=== PATIENT | female | born 1995 | race American Indian/Alaskan Native ===

== ENCOUNTER 2018-10-24 14:10 | Emergency (ER) | payer OTHER ==
--- NOTE | 2018-10-24 14:18 | Emergency Department Report ---
Blank Doc - Documentation Documentation: This is a 23-year-old female that presents with pelvic pain and vaginal bleedi ng. Unsure if shes . This initial assessment/diagnostic orders/clinical plan/treatment(s) is/are subject to change based on patient's health status, clinical progression and re- assessment by fellow clinical providers in the ED. Further treatment and workup at subsequent clinical providers discretion. Patient/guardians urged not to elope from the ED as their condition may be serious if not clinically assessed and managed. Initial orders include: 1- Patient sent to [facility] for further evaluation and treatment 2- UA
[2018-10-24 15:20] LABS: Bilirubin,Urine NEG (Negative); Blood,Urine NEG (Negative); Color,Urine Yellow (Yellow); Mucus,Urine 3+ /HPF; Protein,Urine <15 mg/dL mg/dL (Negative)
[2018-10-24 15:22] LABS: HCG Qualitative,Urine Negative (Negative)
[2018-10-24] MEDS ORDERED: IBUPROFEN PO ONE (17:55)
--- NOTE | 2018-10-24 18:12 | Emergency Department Report ---
ED Female HPI - General Chief complaint: Abdominal Pain Stated complaint: CRAMPS/SPOTTING/ABD PAIN Time Seen by Provider: 10/24/18 14:17 Source: patient Mode of arrival: Ambulatory Limitations: No Limitations - History of Present Illness Initial comments: Patient is a 23-year-old female who presents to the emergency room with complaints of suprapubic abdominal cramping that began yesterday. She describes the cramping as "menstrual cramps." She states she began to have spotting yesterday. States she came to the emergency room just to find out if she was . She states that she got off Depo-Provera in May. She has not had a normal cycle since then. Has any past medical history or allergies to medications. - Related Data Allergies Allergy/AdvReac Type Severity Reaction Status Date / Time No Known Allergies Allergy Unverified 10/24/18 14:14 ED Review of Systems ROS: Stated complaint: CRAMPS/SPOTTING/ABD PAIN Other details as noted in HPI Comment: All other systems reviewed and negative ED Past Medical Hx - Past Medical History Previous Medical History?: No - Surgical History Past Surgical History?: No - Social History Smoking Status: Never Smoker Substance Use Type: None ED Physical Exam - General Limitations: No Limitations General appearance: alert, in no apparent distress - Head Head exam: Present: atraumatic, normocephalic - Eye Eye exam: Present: normal appearance - ENT ENT exam: Present: mucous membranes moist - Respiratory Respiratory exam: Present: normal lung sounds bilaterally. Absent: respiratory distress, wheezes, rales, rhonchi, stridor, chest wall tenderness, accessory muscle use, decreased breath sounds, prolonged expiratory - Cardiovascular Cardiovascular Exam: Present: regular rate, normal rhythm, normal heart sounds. Absent: systolic murmur, diastolic murmur, rubs, gallop - GI/Abdominal GI/Abdominal exam: Present: soft, normal bowel sounds. Absent: distended, tenderness, guarding, rebound, rigid - Back Exam Back exam: Absent: CVA tenderness (R), CVA tenderness (L) - Neurological Exam Neurological exam: Present: alert, oriented X3 - Psychiatric Psychiatric exam: Present: normal affect, normal mood - Skin Skin exam: Present: warm, dry, intact ED Course Vital Signs 10/24/18 10/24/18 14:18 18:15 Temperature 98.3 F Pulse Rate 102 H 90 Respiratory 18 16 Rate Blood Pressure 153/89 Blood Pressure 146/84 [Left] O2 Sat by Pulse 100 100 Oximetry ED Medical Decision Making - Lab Data Lab Results 10/24/18 Range/Units 14:57 Urine Color Yellow (Yellow) Urine Turbidity Clear (Clear) Urine pH 5.0 (5.0-7.0) Ur Specific Milnor 1.031 H (1.003-1.030) Urine Protein <15 mg/dl (Negative) mg/dL Urine Glucose (UA) Neg (Negative) mg/dL Urine Ketones Neg (Negative) mg/dL Urine Blood Neg (Negative) Urine Nitrite Neg (Negative) Urine Bilirubin Neg (Negative) Urine Urobilinogen 4.0 (<2.0) mg/dL Ur Leukocyte Esterase Neg (Negative) Urine WBC (Auto) 2.0 (0.0-6.0) /HPF Urine RBC (Auto) 2.0 (0.0-6.0) /HPF U Epithel Cells (Auto) 1.0 (0-13.0) /HPF Urine Mucus 3+ /HPF Urine HCG, Qual Negative (Negative) - Medical Decision Making Patient is a 23-year-old female who presents to the emergency room with complaints of suprapubic abdominal cramping that began yesterday. She describes the cramping as "menstrual cramps." She states she began to have spotting yesterday. States she came to the emergency room just to find out if she was . She states that she got off Depo-Provera in May. She has not had a normal cycle since then. Has any past medical history or allergies to medications. no abd tenderness on exam. VSS. UA without evidence of UTI. urine preg is negative. offered ibuprofen for menstrual cramps she states she would take at home. discussed with pt to please drink plenty of water. Take ibuprofen or Tylenol for menstrual cramps. may apply a heating pad. Follow up with an [facility] SPECIALIST in the next few days to discuss other control options. Return to the emergency room for any new or worsening symptoms. - Differential Diagnosis dysmenorrhea, , UTI Critical care attestation.: If time is entered above; I have spent that time in minutes in the direct care of this critically ill patient, excluding procedure time. ED Disposition Clinical Impression: Menstrual cramps Disposition: DC- TO HOME OR SELFCARE Is pt being admited?: No Does the pt Need Aspirin: No Condition: Stable Instructions: Menstruation (ED) Additional Instructions: Please drink plenty of water. Take ibuprofen or Tylenol for menstrual cramps. may apply a heating pad. Follow up with an HAIR SPECIALIST in the next few days to discuss other control options. Return to the emergency room for any new or worsening symptoms. Referrals: [facility] [Provider Group] - 3-5 Days [facility] [Provider Group] - 3-5 Days [facility] [Provider Group] - 3-5 Days Time of Disposition: 18:11 Print Language: ROMANIAN
[2018-10-24 18:16] VITALS: BP 146/84
== END 2018-10-24 18:15 | disposition home or self-care (01) ==
LOC: ED 14:10
DX: N94.6 Dysmenorrhea, unspecified (principal)
CPT/HCPCS: 81001; 81025